=== PATIENT | female | born 1945 | race Caucasian/White ===

== ENCOUNTER → 2017-08-21 | Outpatient (CLI) | payer MEDICARE ==
--- NOTE | 2017-08-21 09:56 | KCIC ---
MRI Lumbar Spine without contrast History: Abnormal x-ray, fall July 13, 2017 with pain since fall Technique: Multiplanar, multi sequential noncontrast MR imaging was performed of the lumbar spine. Contrast: None Comparison: None Findings: Lumbar vertebral body stature is preserved. There is negligible anterior spondylolisthesis at L3-4. There is mild degenerative disc disease L5-S1, mild disc desiccation at more superior levels. Conus terminates at L1-2. There are posterior and anterior annular tears L3-4, anterior annular tear L2-3. L1-L2: This level was not included on the axial images. Neural foramina and spinal canal are adequate. There is negligible posterior bulge. L2-L3: This level was not included on the axial images. There is negligible posterior bulge. Spinal canal and neural foramina are adequate. L3-L4: There is negligible posterior bulge. Spinal canal and neural foramina are adequate. There is mild buckling of the ligamentum flavum. L4-L5: There is minimal posterior bulge. There is minimal narrowing of the far right lateral recess. There is mild narrowing of the right neural foramen, left neural foramen overall adequate. L5-S1: Spinal canal and neural foramina are adequate. Impression: 1. There is no significant lumbar spinal stenosis, minimal narrowing of the far right lateral recess L4-5. There are very minimal posterior bulges estimated. 2. There is minimal narrowing of the right L4-5 neural foramen. Electronically signed by: Franki Tejada MD (08/21/2017 9:52 AM) [id number]
== END | disposition home or self-care (01) ==
LOC: KCIC MRI 08:18
PROVIDERS: ATTEND Physician Assistant Medical
DX: M51.26 Other intervertebral disc displacement, lumbar region (principal); R93.7 Abnormal findings on diagnostic imaging of other parts of musculoskeletal system
CPT/HCPCS: 72148